=== PATIENT | female | born 1965 | race Caucasian/White ===

== ENCOUNTER 2017-06-02 21:04 | Emergency (ER) | payer OTHER ==
[2017-06-02 21:32] VITALS: RESP 18; TEMP 99.1
[2017-06-02 22:13] VITALS: BP 161/87; PULSE 85; O2SAT 97
== END 2017-06-02 22:10 | disposition home or self-care (01) | DRG 605 ==
LOC: ED 21:04
DX: S60.031A Contusion of right middle finger without damage to nail, initial encounter (principal); W50.0XXA Accidental hit or strike by another person, initial encounter; Y93.F9 Activity, other caregiving; Y92.232 Corridor of hospital as the place of occurrence of the external cause; Y99.0 Civilian activity done for income or pay
CPT/HCPCS: 73140; 99282